=== PATIENT | male | born 1965 | race Caucasian/White ===

== ENCOUNTER 2016-08-15 10:34 | Outpatient (CLI) | payer BC ==
[~2016-08-15] VITALS: Ht 190.5 cm; Wt 159.1 kg
--- NOTE | ~2016-08-15 | HEMODYNAMI ---
PATIENT:CHARLEY LANE MEDICAL RECORD: [id number] : 69 LOCATION:[facility] ADMISSION DATE: 08/15/16 Generatedon:08/15/201614:04 Patient name: CHARLEY LANE Patient #: [id number] SSN: : 1965 Date of study: 08/15/2016 Page: Of Hemodynamic Procedure Report Patient Data Patient Demographics Procedure consent was obtained First Name: CHARLEY Gender: Male Last Name: DOMINGO : 1965 Middle Initial: KATELYN Age: 51 year(s) Patient #: [id number] Race: Unknown Additional ID: [id number] Contact details Address: [address] [address] State: [place] City: [place] Zip code: [address] Past Medical History Allergies: No known allergies Admission Admission Data Admission Date: 08/15/2016 Admission Time: 10:34 Height (in.): 76 BSA: 2.81 (m2) Height (cm.): 193.04 BMI: 42.6 (kg/m2) Weight (lbs.): 350 Weight (kg.): 158.76 Lab Results Lab Result Date: 08/15/2016 Lab Result Time: 0:00 Biochemistry Name Units Result Min Max BUN mg/dl 15 --(--*-)-- 7 18 CBC Name Units Result Min Max Hemoglobin g/dl 13.9 --(*---)-- 13.5 17.5 Procedure Procedure Types Cath Procedure Diagnostic Procedure LHC LHC w/Coronaries Miscellaneous Procedures Moderate Sedation up to 15 minutes Procedure Description Procedure Date Procedure Date: 08/15/2016 Procedure Start Time: 13:49 Procedure End Time: 14:03 Procedure Staff Name Function Vik Mejia MD Performing Physician Kathy Saravia RN Nurse Iglesia Goldsmith RT Monitor Woodrow Rivero RT Scrub Procedure Data Cath Procedure Fluoroscopy Diagnostic fluoroscopy Total fluoroscopy Time: 3.2 time: 3.2 min min Diagnostic fluoroscopy Total fluoroscopy dose: dose: 429.55 mGy 429.55 mGy Contrast Material Contrast Material Type Amount (ml) Isovue 300 92 Entry Location Entry Primary Successful Side Size Upsize Upsize Entry Closure Bradley ccessful Closure Location (Fr) 1 (Fr) 2 (Fr) Remarks Device Remarks Radial Right 6 Fr Mechanical artery Short Compression Estimated blood loss: 10 ml Diagnostic catheters Device Type Used For End Catheter Placement Terumo 5Fr Alvino 110cm Procedure catheter Procedure Medications Medication Administration Route Dosage Oxygen NC 2 l/min Heparin Flush Bag added to field 2 bags (1000units/500ml NS) Lidocaine 2% added to field 20 Radial Cocktail added to field 1 syringe (Verapomil 2mg/Nitro 400mcg/Heparin 1500units) Versed I.V. 1 mg Fentanyl I.V. 50 mcg Radial Cocktail I.A. 1 syringe (Verapomil 2mg/Nitro 400mcg/Heparin 1500units) Versed I.V. 1 mg Fentanyl I.V. 50 mcg Fentanyl I.V. 50 mcg Hemodynamics Rest BSA: 2.81 (m2) HGB: 13.9 (g/dl) O2 Consumption: Estimated: 335.18 (ml/min) O2 Co nsumption indexed: Estimated:119.28 (ml/min/m) Heart Rate: 69 (bpm) Pressure Samples Time Site Value (mmHg) Purpose Heart Use Rate(bpm) 13:53 LV 150/-3,16 Snapshot 69 Gradients Valve Time Site Site Mean SEP/DFP Peak To Heart Use 1 2 (mmHg) (sec/min) Peak Rate (mmHg) (bpm) Aortic 13:54 LV AO 68 Snapshots Pre Cath Intra NCS Post Cath Vital Signs Time Heart Resp SPO2 NIBP (mmHg) Rhythm Pain Sedation Rate (ipm) (%) Status Level (bpm) 13:40:06 67 20 99 181/108(154) NSR 0 (11) 10(A) , No pain 13:44:50 66 16 98 165/99(145) NSR 0 (11) 10(A) , No pain 13:49:35 65 16 97 173/100(131) NSR 0 (11) 10(A) , No pain 13:54:09 68 16 94 157/91(110) NSR 0 (11) 9(A) , No pain 13:58:50 70 15 96 160/92(112) NSR 0 (11) 9(A) , No pain 14:03:04 66 16 97 164/96(132) NSR 0 (11) 9(A) , No pain Medications Time Medication Route Dose Verified Delivered Reason Notes Effectiveness by by 13:39:19 Oxygen NC 2 l/min Vik Kathy Per Roberto Saravia RN physician 13:39:33 Heparin Flush added 2 bags Vik Vik used for Bag to Roberto Mejia MD procedure (1000units/500ml field NS) 13:39:40 Lidocaine 2% added 20ml Vik Vik used for to vial Roberto Mejia MD procedure field 13:39:47 Radial Cocktail added 1 Vik Vik used for (Verapomil to syringe Roberto Mejia MD procedure 2mg/Nitro field 400mcg/Heparin 1500units) 13:48:10 Versed I.V. 1 mg Vik Kathy for sedation Roberto Saravia RN 13:48:17 Fentanyl I.V. 50 mcg Vik Kathy for sedation Roberto Saravia RN 13:50:00 Fentanyl I.V. 50 mcg Vik Kathy for sedation Roberto Saravia RN 13:50:29 Radial Cocktail I.A. 1 Vik Vik for (Verapomil syringe Roberto Mejia MD vasodilation 2mg/Nitro 400mcg/Heparin 1500units) 13:50:51 Versed I.V. 1 mg Vik Kathy for sedation Roberto Saravia RN 13:52:09 Fentanyl I.V. 50 mcg Vik Kathy for sedation Roberto Saravia RN Procedure Log Time Note 13:15:46 Iglesia Goldsmith RT(R) (CV) sent for patient. Start room use. 13:15:48 Time tracking: Regular hours 13:15:51 Plan of Care:Hemodynamics will remain stable., Cardiac rhythm will remain stable., Comfort level will be maintained., Respiratory function will remain adequate., Patient/ family verbilizes understanding of procedure., Procedure tolerated without complication., Recovers from procedure without complications.. 13:28:32 Patient received from Pre/Post Procedure Room to [facility] 3 Alert and oriented. Tansferred to table in Supine position. 13:28:33 Warm blankets applied, and fauzia hugger turned on for patient comfort. 13:28:34 Correct patient and procedure confirmed by team. 13:28:35 Signed procedure consent form obtained from patient. 13:28:35 ECG and BP/O2 sat monitors applied to patient. 13:38:27 Vital chart was started 13:39:19 Oxygen 2 l/min NC was administered by Kathy Saravia RN; Per physician; 13:39:33 Heparin Flush Bag (1000units/500ml NS) 2 bags added to field was administered by Vik Mejia MD; used for procedure; 13:39:40 Lidocaine 2% 20ml vial added to field was administered by Vik Mejia MD; used for procedure; 13:39:47 Radial Cocktail (Verapomil 2mg/Nitro 400mcg/Heparin 1500units) 1 syringe added to field was administered by Vik Mejia MD; used for procedure; 13:44:32 Baseline sample Acquired. 13:44:42 Rhythm: sinus rhythm 13:44:45 Full Disclosure recording started 13:45:14 H&P Date Dictated: 07/22/2016 Within 30 days and on chart., H&P Addendum completed by physician on day of procedure. (MUST COMPLETE FOR ALL OUTPATIENTS). 13:45:15 Pre-procedure instructions explained to patient. 13:45:16 Pre-op teaching completed and patient verbalized understanding. 13:45:17 Family in waiting room. 13:45:20 Patient NPO since Midnight. 13:45:28 Patient allergic to No known allergies 13:45:48 Is the patient allergic to Iodine/contrast media? No. 13:45:51 Is patient on blood thinner?No 13:46:07 Patient diabetic? Yes. 13:46:08 If diabetic: On Metformin? Yes 13:46:31 If on Metformin: Last Dose? 08/12/2016 13:46:34 ----Pre-sedation anethsthesia assessment.---- 13:46:37 Previous problem with sedation/anesthesia? No ? 13:46:38 Snore? Yes 13:46:40 Sleep apnea? Yes 13:46:41 Deviated septum? No 13:46:42 Opens mouth fully? Yes 13:46:43 Sticks out tongue? Yes 13:46:46 Airway obstruction? No ? 13:46:49 Dentures? No ? 13:47:02 Modified Stanley's test Ulnar < 7 seconds 13:47:05 Patient pain scale 0/10 ?. 13:47:13 IV patent on arrival in left forearm with 0.9% NaCl at [facility]. 13:47:43 Lab Result : BUN 15 mg/dl 13:47:43 Lab Result : Hemoglobin 13.9 g/dl 13:47:48 Lab results completed and on chart. 13:47:53 Right Radial & Right Groin area was prepped with chlora-prep and draped in sterile fashion 13:47:55 Alarms reviewed by R. N. 13:47:55 Sharps counted by scrub and verified by R.N. 13:47:57 Physician arrived 13:47:57 --------ALL STOP TIME OUT------ 13:47:58 Final Timeout: patient, procedure, and site verified with staff and physician. All members of the team are in agreement. 13:48:00 Right Radial & Right Groin site verified by team. 13:48:04 Physical assessment completed. ASA score P 2 - A patient with mild systemic disease as per Vik Mejia MD. 13:48:08 Sedation plan: IV Moderate Sedation Versed, Fentanyl 13:48:10 Versed 1 mg I.V. was administered by Kathy Saravia RN; for sedation; 13:48:17 Fentanyl 50 mcg I.V. was administered by Kathy Saravia RN; for sedation; 13:48:25 Patient Height : 193.04 cm 13:48:35 Patient Weight : 158.76 kg 13:48:54 Use device set Radial Dx 13:48:55 Acist Syringe opened to sterile field. 13:48:56 Medline Cath Pack opened to sterile field. 13:48:57 Bag Decanter opened to sterile field. 13:48:57 Terumo 6Fr Slender Glidesheath opened to sterile field. 13:48:58 St Joce 260cm J .035 wire opened to sterile field. 13:48:58 Acist Hand Control opened to sterile field. 13:48:59 Acist Manifold opened to sterile field. 13:48:59 Tegaderm 4 x 4 opened to sterile field. 13:49:00 MBrace Wrist Support opened to sterile field. 13:49:06 Procedure started. 13:49:14 Local anesthetic to right radial artery with Lidocaine 2% by Vik Mejia MD.INITIAL ACCESS ONLY 13:50:00 Fentanyl 50 mcg I.V. was administered by Kathy Saravia RN; for sedation; 13:50:06 A 6 Fr Short sheath was inserted into the Right Radial artery 13:50:29 Radial Cocktail (Verapomil 2mg/Nitro 400mcg/Heparin 1500units) 1 syringe I.A. was administered by Vik Mejia MD; for vasodilation; 13:50:30 A Terumo 5Fr Alvino 110cm catheter was advanced over the wire and used for Procedure. 13:50:43 Baseline sample Acquired. 13:50:51 Versed 1 mg I.V. was administered by Kathy Saravia RN; for sedation; 13:51:38 Zero performed for pressure channel P1 13:52:09 Fentanyl 50 mcg I.V. was administered by Kathy Saravia RN; for sedation; 13:53:56 LV hemodynamics recorded. 13:53:58 LV gram done using DARBY 13:54:01 LV Function : Normal 13:54:09 EF : 55 % 13:55:23 LCA angiography performed. 13:57:35 RCA angiography performed. 13:58:47 Catheter removed. 13:59:01 Terumo TR Band Large opened to sterile field. 13:59:42 Sheath removed intact; hemostasis achieved with Mechanical Compression to the Right Radial artery. 13:59:46 Procedure ended.(Physican Out) 14:00:33 Fluoroscopy time 03.20 minutes. 14:00:41 Fluoroscopy dose: 429.55 mGy 14:00:41 Flurop Dose total: 429.55 14:00:46 Contrast amount:Isovue 300 92ml. 14:00:47 Sharps counted by scrub and verified by R.N. 14:01:46 TR band inflated with 10cc of air. 14:01:48 Insertion/operative site no bleeding no hematoma. 14:01:54 Post right radial artery:stable 14:02:01 Post-procedure physical assessment completed. ASA score P 2 - A patient with mild systemic disease as per Vik Mejia MD. 14:02:04 Post procedure rhythm: sinus rhythm 14:02:07 Estimated blood loss: 10 ml 14:02:09 Post procedure instruction explained to patient.Patient verbalizes understanding. 14:02:09 Patient needs reinforcement of post procedure teaching. 14:02:34 Procedure and supply charges have been captured, reviewed, submitted and are correct. 14:03:48 Vital chart was stopped 14:03:49 See physician's report for complete and final results. 14:03:51 Report given to Pre/Post Procedure Room. 14:03:55 Patient transfered to Pre/Post Procedure Room with Stretcher. 14:03:57 Procedure ended. 14:03:57 Full Disclosure recording stopped 14:04:06 End room use (Document Last) Device Usage Item Name Manufacture Quantity Catalog Hospital Part Current Minimal Lot# / Number Charge Number Stock Stock Serial# Code Acist Acist 1 91542 693951 715762 901782 20 Syringe Medical Systems Inc Medline Cardinal 1 [id number] 098602 14832 504608 5 Cath Pack Health Bag Microtek 1 2001S 972384 24943 844759 5 Decanter Medical Inc. Terumo 6Fr Terumo 1 [id number] 501316 299046 749086 [address] Jo[address] St Joce 1 043556 205292 143825 246308 30 260cm J .035 wire Acist Hand Acist 1 56857 636611 558633 467164 5 Control Medical Systems Inc Acist Acist 1 81240 719892 069203 321968 5 Manifold Medical Systems Inc Tegaderm 4 3M 1 1626W 203594 721356 744317 5 x 4 MBrace Advanced 1 140-0250-00 766246 21428 169034 5 Wrist Vascular Support Dynamics Terumo 5Fr Terumo 1 76-4666 865576 747636 584480 5 Alvino 110cm catheter Terumo TR Terumo 1 [id number] 831112 638066 247491 40 Band Large Signature Audit [place] Stage Time Signature Unsigned Intra-Procedure 08/15/2016 Iglesia Goldsmith 2:04:33 PM RT(R) (CV) Signatures Monitor : Iglesia Goldsmith RT Signature : Date : Time : [id number] [place] [address]
[~2016-08-15 10:34] MED LIST: GLUCOPHAGE500 MG PO; GLUCOTROL 5 MG T5 MG PO; LISINOPRIL10 MG PO; NORVASC5 MG PO; PERCOCET 10/3251 TA1 PO; PERCOCET 5-3251 TAB PO; RESTORIL15 MG PO
[2016-08-15] MEDS ORDERED: ZIAC 10-6.25 MG1 TAB PO (10:59)
[2016-08-15 11:05] VITALS: BP 188/104; Ht 190.5 cm; Wt 159.1 kg
[2016-08-15 11:41] LABS: BASOPHILS 0.5 % (0-2); EOSINOPHILS 1.2 % (0-7); HEMATOCRIT 42.5 % (42.0-54.0); HEMOGLOBIN 13.9 g/dL (13.5-17.5); IMMATURE GRANULOCYTES 0.8 % (0-5); LYMPHOCYTES 20.1 % (15-50); MCH 29.3 pg (26.0-34.0); MCHC 32.7 g/dL (31.0-37.0); MCV 89.5 fL (80.0-100.0); MEAN PLATELET VOLUME 10.6 fL (7.4-10.4); MONOCYTES 11.2 % (2-11); NEUTROPHILS 66.2 % (40-80); PLATELET COUNT 229 10x3/uL (130-400); RBC 4.75 10x6/uL (4.20-6.10); RDW 13.5 % (11.5-14.5); WBC 8.6 10x3/uL (4.8-10.8)
[2016-08-15 11:43] LABS: CALC OSMOLALITY 283 mosm/kg (275-300); CALCIUM 8.9 mg/dL (8.5-10.1); CARBON DIOXIDE 29.1 mmol/L (21.0-32.0); CHLORIDE - SERUM 102 mmol/L (98-107); POTASSIUM - SERUM 3.9 mmol/L (3.5-5.1); SODIUM 141 mmol/L (136-145); UREA NITROGEN 15 mg/dL (7-18); eGFR NON AFRICAN AMERICAN 84 mL/min (90-120)
[2016-08-15 11:46] LABS: GLUCOSE 136 mg/dL (74-106)
--- NOTE | 2016-08-15 15:22 | NUR ---
1430 SITTING UP, VITALS ALL WNL. R WRIST TR BAND C/D/I WITH NO HEMATOMA OR BLEEDING. FAMILY AT BEDSIDE. DENIES NEEDS AT THIS TIME. 1500 SIPPING SODA WITH NO NAUSEA. ALL VITALS WNL. R WRIST TR BAND C/D/I WITH NO HEMATOMA OR BLEEDING.
--- NOTE | 2016-08-15 16:22 | NUR ---
2CC OF AIR REMOVED FROM TR BAND. NO BLEEDING NOTED. NO C/O AT THIS TIME. VSS.
--- NOTE | 2016-08-15 16:34 | NUR ---
3CC OF AIR [id number] FROM TR BAND. NO BLEEDING NOTED.
--- NOTE | 2016-08-15 16:46 | NUR ---
3CC OF AIR REMOVED FROM TR BAND. NO BLEEDING NOTED. RIGHT AC PIV D/C'D WITH CATHETER INTACT, BAND AID TO SITE. UP TO BEDSIDE TO GET DRESSED.
--- NOTE | 2016-08-15 16:52 | NUR ---
REMAINING AIR REMOVED FROM TR BAND, DRESSING PLACED TO SITE. DISCHARGE INSTRUCTIONS GIVEN, VERBALIZED UNDERSTANDING.
--- NOTE | 2016-08-15 17:00 | NUR ---
TAKEN OUT VIA WHEELCHAIR BY CATH OFFICE MESSENGER HELPER. LEFT FACILITY WITH AND ALL PERSONAL BELONGINGS.
--- NOTE | 2016-08-17 12:49 | OP ---
PATIENT NAME: CHARLEY LANE MEDICAL RECORD: [id number] :69 LOCATION:D[facility] ADMISSION DATE: SURGEON: SARA JARA M.D. DATE OF OPERATION: 08/15/2016 PROCEDURES PERFORMED: 1. Selective coronary angiography. 2. Left heart catheterization with ventriculogram. INDICATION: A 51-year-old gentleman who presents with symptoms of accelerating angina. Recent stress test revealed lateral wall ischemia. REFERRING PHYSICIAN: Sheree Ashraf MD. EQUIPMENT USED: A 5-Senegalese Alvino catheter. TECHNIQUE: A 6-Senegalese sheath was inserted in retrograde fashion in the right radial artery. Next, selective coronary angiography was performed in standard views using 5-Senegalese Alvino catheter. Left heart catheterization was performed using a Alvino catheter as well. CORONARY ANATOMY: 1. Left main: Left main trunk is large in caliber. It gives rise to the LAD and circumflex. It is a smooth-walled vessel and angiographically normal. 2. LAD: This is a large-caliber vessel extending to the apex. It gives rise to a moderate caliber diagonal proximal segment. The LAD and diagonal are angiographically normal. 3. Circumflex: This vessel is moderate in caliber. It supplies the lateral branch and proximal segment. The circumflex and lateral branch are angiographically normal. 4. Right coronary artery: This vessel is quite large and dominant. It supplies the PDA and posterolateral branches in the distal segment. This vessel is angiographically normal. 5. Left ventricle: Left ventricle is normal in size and function. No wall motion is noted. Estimated ejection fraction is 60%. IMPRESSION: 1. Normal coronary arteries. 2. Normal left ventricular function. RECOMMENDATIONS: I suspect the stress test was a false positive. We will continue with medical management. TRANSINT:[id number] Voice Confirmation ID: [id number] DOCUMENT ID: [id number] SARA JARA M.D. at 1249 CC: [id number] DICTATION DATE: 08/15/16 1407 VISION SPECIALIST: 08/15/161950 [facility] CLI 08/15/16 [address] [place] [address]
== END 2016-08-15 17:00 | disposition home or self-care (01) ==
LOC: D.CATH 10:34
PROVIDERS: Internal Medicine Cardiovascular Disease
DX: I20.9 Angina pectoris, unspecified (principal); I10 Essential (primary) hypertension; I45.10 Unspecified right bundle-branch block; Z82.49 Family history of ischemic heart disease and other diseases of the circulatory system

== ENCOUNTER 2016-11-03 08:02 | Inpatient (IN) | payer BC ==
[~2016-11-03] VITALS: Ht 190.5 cm; Wt 158.8 kg
[~2016-11-03 08:02] MED LIST changes: +ZIAC 10-6.25 MG1 TAB PO
[2016-11-03 08:48] LABS: BASOPHILS 0.2 % (0-2); EOSINOPHILS 1.1 % (0-7); HEMOGLOBIN 15.3 g/dL (13.5-17.5); IMMATURE GRANULOCYTES 0.9 % (0-5); MCH 30.6 pg (26.0-34.0); MEAN PLATELET VOLUME 10.3 fL (7.4-10.4); MONOCYTES 6.6 % (2-11); NEUTROPHILS 77.2 % (40-80); PLATELET COUNT 212 10x3/uL (130-400); RDW 14.2 % (11.5-14.5); WBC 13.2 10x3/uL (4.8-10.8)
[2016-11-03 09:44] LABS: ALBUMIN 3.6 g/dL (3.4-5.0); ALKALINE PHOSPHATASE 67 U/L (46-116); ALT (SGPT) 27 U/L (10-68); AMYLASE - SERUM 26 U/L (25-115); BILIRUBIN - TOTAL 0.85 mg/dL (0.2-1.3); CALC OSMOLALITY 289 mosm/kg (275-300); CALCIUM 9.3 mg/dL (8.5-10.1); CARBON DIOXIDE 23.6 mmol/L (21.0-32.0); CHLORIDE - SERUM 104 mmol/L (98-107); CREATININE - SERUM 1.1 mg/dL (0.6-1.3); LIPASE 127 U/L (73-393); POTASSIUM - SERUM 4.3 mmol/L (3.5-5.1); SODIUM 141 mmol/L (136-145); UREA NITROGEN 22 mg/dL (7-18); eGFR NON AFRICAN AMERICAN 75 mL/min (90-120)
[2016-11-03 09:47] LABS: GLUCOSE 206 mg/dL (74-106)
[2016-11-03 09:59] LABS: APPEARANCE CLEAR (CLEAR); BILIRUBIN NEGATIVE (NEGATIVE); COLOR YELLOW (YELLOW); GLUCOSE 100 mg/dL (NEGATIVE); KETONE NEGATIVE (NEGATIVE); LEUKOCYTE ESTERASE NEGATIVE (NEGATIVE); NITRITE NEGATIVE (NEGATIVE); PROTEIN NEGATIVE (NEGATIVE); UROBILINOGEN NORMAL (NORMAL)
--- NOTE | 2016-11-03 12:30 | NUR ---
RECIEVED PT VIA WHEELCHAIR FROM ER. REPORT RECIEVED BY CHRISTIAN ROSE. PT ORINETED TO ROOM AND UNIT. ASSESSMENT DONE PER FLOWSHEET, HISTORY OBTAINED. BED IN LOW POSITION AND CALL LIGHT WITHIN REACH. WILL CONTINUE TO MONITOR.
[2016-11-03] MEDS ORDERED: LISINOPRIL10 MG PO (13:04)
[2016-11-03 15:01] VITALS: BP 129/76; BMI 43.8
[2016-11-03 16:33] VITALS: BP 108/83
[2016-11-03 20:00] VITALS: BP 136/81
[2016-11-04] VITALS: BP 147/86
--- NOTE | 2016-11-04 00:40 | NUR ---
PATIENT SLEEPING CONFORTABLY WITH HOME CPAP ON. BED IN LOWEST LOCKED POSITION, BED RAIL UP x1, CALL LIGHT WITHIN REACH
[2016-11-04 03:49] VITALS: BP 123/74
--- NOTE | 2016-11-04 04:02 | NUR ---
PT REMAINS NPO FOR SURGERY IN THE AM. HE IS AWAKE AND STATED HE WAS READY TO TAKE HIS HIBICLENS SHOWER WHENEVER WE WERE READY. HE IS WEARING CPAP AT THIS TIME. AND THERE IS NO RESP DISTRESS NOTEED.
[2016-11-04 05:47] LABS: BASOPHILS 0.3 % (0-2); EOSINOPHILS 3.5 % (0-7); HEMATOCRIT 39.7 % (42.0-54.0); HEMOGLOBIN 13.1 g/dL (13.5-17.5); LYMPHOCYTES 31.3 % (15-50); MCH 30.1 pg (26.0-34.0); MCV 91.3 fL (80.0-100.0); MEAN PLATELET VOLUME 10.7 fL (7.4-10.4); NEUTROPHILS 53.9 % (40-80); PLATELET COUNT 197 10x3/uL (130-400); RBC 4.35 10x6/uL (4.20-6.10); RDW 14.3 % (11.5-14.5)
[2016-11-04 05:48] LABS: WBC 7.2 10x3/uL (4.8-10.8)
[2016-11-04 05:52] LABS: ALBUMIN 2.8 g/dL (3.4-5.0); ALKALINE PHOSPHATASE 51 U/L (46-116); BILIRUBIN - TOTAL 0.73 mg/dL (0.2-1.3); CALCIUM 8.5 mg/dL (8.5-10.1); CHLORIDE - SERUM 106 mmol/L (98-107); PHOSPHOROUS 3.1 mg/dL (2.5-4.9); PROTEIN - SERUM 6.4 g/dL (6.4-8.2); SODIUM 142 mmol/L (136-145); eGFR NON AFRICAN AMERICAN 84 mL/min (90-120)
[2016-11-04 05:53] LABS: ALT (SGPT) 20 U/L (10-68); CALC OSMOLALITY 285 mosm/kg (275-300); CARBON DIOXIDE 30.6 mmol/L (21.0-32.0); GLUCOSE 136 mg/dL (74-106); UREA NITROGEN 15 mg/dL (7-18)
--- NOTE | 2016-11-04 07:30 | NUR ---
RECIEVED PT DURING WALKING ROUNDS. PT RESTING IN BED WITH NO COMPLAINTS OF PAIN OR DISCOMFORT AT THIS TIME, STRETCH MACHINE OPERATOR IN USE. ASSESSMENT DONE PER FLOWSHEET. BED IN LOW POSITION AND CALL LIGHT WITHIN REACH. WILL CONTINUE TO MONITOR.
[2016-11-04 09:31] VITALS: BP 130/91
[2016-11-04 12:14] VITALS: BP 128/89
[2016-11-04 13:08] VITALS: Ht 190.5 cm; Wt 158.8 kg
[2016-11-04 15:58] VITALS: BP 145/87
[2016-11-04 20:00] VITALS: BP 161/82
--- NOTE | 2016-11-05 00:18 | NUR ---
PATIENT TAKEN BACK TO SURGERY AROUND 2300. FAMILY IS IN ROOM.
--- NOTE | 2016-11-05 00:28 | NUR ---
PROCEDURE CONVERTED TO OPEN AT 0025
[2016-11-05 03:19] VITALS: BP 145/70
[2016-11-05 03:33] VITALS: BP 126/55
--- NOTE | 2016-11-05 04:44 | NUR ---
PT IS AWAKE IN BED WITH A SATELLITE DISH INSTALLER FOR PAIN CONTROL BUT HE STATED HE WAS STILL HURTING ALOT. ASSIGNED NURSE WAS ASKED IF THERE WAS ANYTHING FOR BREAK THROUGH PAIN. THE DRESSING TO HIS ABD IS CLEAN DRY AND INTACT. HE IS STILL GETTING HIS VITAL SIGNS TAKEN PER PROTOCOL. NO FAMILY IN THE ROOM. NO DISTRESS NOTED. GOOD COLOR AND EASY RESPIRATIONS AT THIS TIME.
--- NOTE | 2016-11-05 07:15 | NUR ---
REPORT RECEIVED FROM PACKAGING MACHINE SUPPLIES DISTRIBUTOR NURSE. CALL LIGHT IN REACH.
--- NOTE | 2016-11-05 07:54 | NUR ---
ASSESSMENT COMPLETED. INCENTIVE SPIROMETER GIVEN TO PATIENT AND EXPLAINED USE WITH RETURN DEMONSTRATION. SCDs APPLIED TO BLE. REQUESTING A CUP OF WATER BUT EXPLAINED TO PATIENT THAT HE IS NPO EXCEPT FOR ICE CHIPS. VERBALIZED UNDERSTANDING. ICE TAKEN TO PATIENT. ALSO EXPLAINED TO SPLINT HIS STOMACH WITH A PILLOW WHEN HE HAS TO COUGH. ALSO VERBALIZED UNDERSTANDING FOR THAT. CARE PLAN REVIEWED. CALL LIGHT IN REACH. WILL CONTINUE WITH PLAN OF CARE.
[2016-11-05 08:32] LABS: BASOPHILS 0.2 % (0-2); EOSINOPHILS 0 % (0-7); HEMATOCRIT 42.1 % (42.0-54.0); HEMOGLOBIN 13.6 g/dL (13.5-17.5); IMMATURE GRANULOCYTES 0.4 % (0-5); LYMPHOCYTES 8.8 % (15-50); MCH 29.9 pg (26.0-34.0); MCHC 32.3 g/dL (31.0-37.0); MCV 92.5 fL (80.0-100.0); MEAN PLATELET VOLUME 10.5 fL (7.4-10.4); NEUTROPHILS 83.6 % (40-80); RBC 4.55 10x6/uL (4.20-6.10)
[2016-11-05 08:34] LABS: PLATELET COUNT 241 10x3/uL (130-400); WBC 11.1 10x3/uL (4.8-10.8)
[2016-11-05 08:44] LABS: ALBUMIN 3.1 g/dL (3.4-5.0); ANION GAP 13.3 mmol/L (8-16); BILIRUBIN - TOTAL 0.72 mg/dL (0.2-1.3); CALCIUM 8.2 mg/dL (8.5-10.1); CARBON DIOXIDE 26.3 mmol/L (21.0-32.0); CREATININE - SERUM 1.5 mg/dL (0.6-1.3); MAGNESIUM - SERUM 1.9 mg/dL (1.8-2.4); PHOSPHOROUS 3.7 mg/dL (2.5-4.9); POTASSIUM - SERUM 4.6 mmol/L (3.5-5.1); PROTEIN - SERUM 6.8 g/dL (6.4-8.2)
--- NOTE | 2016-11-05 09:05 | NUR ---
LYING IN BED WATCHING TV AT THIS TIME. NO NEEDS VOICED. CALL LIGHT IN REACH.
--- NOTE | 2016-11-05 10:30 | NUR ---
PATIENT IN BED WITH IV INTACT. NO COMPLAINTS OR SIGNS OF DISTRESS. CALL LIGHT WITHIN REACH.
--- NOTE | 2016-11-05 11:38 | NUR ---
AM MEDS ADMINISTERED PER ORDER. CALL LIGHT IN REACH.
--- NOTE | 2016-11-05 12:50 | NUR ---
DENIES NEEDS AT THIS TIME. CALL LIGHT IN REACH
--- NOTE | 2016-11-05 14:30 | NUR ---
DR. ZEE IN ROOM TO SEE PATIENT.
--- NOTE | 2016-11-05 15:03 | NUR ---
RANGE AID SETTINGS CHANGED PER DR. ZEE.
--- NOTE | 2016-11-05 16:30 | NUR ---
LOVENOX SUBQ TO RLQ. NEW VIAL OF BACK CLOSER. PATIENT REFUSES TO HAVE LINENS CHANGED AT THIS TIME.
--- NOTE | 2016-11-05 18:08 | NUR ---
NO CHANGES IN INITIAL ASSESSMENT. CALL LIGHT IN REACH. SCDs TO BLE. CALL LIGHT IN REACH. WILL CONTINUE WITH PLAN OF CARE.
[2016-11-05 20:00] VITALS: BP 123/64
--- NOTE | 2016-11-06 00:40 | NUR ---
RESTING QUIETLY WITH CPAP MASK ON. RR EVEN U/L. NO S/S OF DISTRESS OR DISCOMFORT. SCD'S ON. CALL LIGHT IN REACH.
[2016-11-06 04:00] VITALS: BP 157/82
[2016-11-06 05:22] LABS: BASOPHILS 0.1 % (0-2); EOSINOPHILS 0.7 % (0-7); HEMATOCRIT 39.5 % (42.0-54.0); HEMOGLOBIN 12.8 g/dL (13.5-17.5); IMMATURE GRANULOCYTES 0.6 % (0-5); LYMPHOCYTES 15.2 % (15-50); MCH 29.9 pg (26.0-34.0); MCHC 32.4 g/dL (31.0-37.0); MCV 92.3 fL (80.0-100.0); MEAN PLATELET VOLUME 10.8 fL (7.4-10.4); MONOCYTES 11.6 % (2-11); NEUTROPHILS 71.8 % (40-80); PLATELET COUNT 236 10x3/uL (130-400); RBC 4.28 10x6/uL (4.20-6.10); RDW 14.3 % (11.5-14.5); WBC 8.7 10x3/uL (4.8-10.8)
[2016-11-06 05:41] LABS: ALBUMIN 2.6 g/dL (3.4-5.0); ALKALINE PHOSPHATASE 45 U/L (46-116); ALT (SGPT) 19 U/L (10-68); CALC OSMOLALITY 279 mosm/kg (275-300); CALCIUM 8.2 mg/dL (8.5-10.1); CARBON DIOXIDE 26.2 mmol/L (21.0-32.0); CHLORIDE - SERUM 105 mmol/L (98-107); CREATININE - SERUM 0.9 mg/dL (0.6-1.3); GLUCOSE 127 mg/dL (74-106); POTASSIUM - SERUM 4.1 mmol/L (3.5-5.1); SODIUM 139 mmol/L (136-145); UREA NITROGEN 13 mg/dL (7-18); eGFR NON AFRICAN AMERICAN > 90 mL/min (90-120)
--- NOTE | 2016-11-06 07:15 | NUR ---
REPORT RECEIVED FROM PROGRAMMER DEVELOPER NURSE. CALL LIGHT IN REACH.
--- NOTE | 2016-11-06 08:10 | NUR ---
ASSESSMENT COMPLETE. IV TO L AC PATENT. NS INFUSING AT 125 CC/HR VIA PUMP. SCHOOL DIRECTOR DILAUDID 0.4-10-0 IN USE FOR PAIN CONTROL. DRESSING INTACT TO ABDOMINAL INCISION. SCDS IN USE TO BILAT LEGS. INSTRUCTED TO SPLINT ABDOMEN WITH PILLOW HHILE COUGHING.
[2016-11-06 08:24] VITALS: BP 186/89
--- NOTE | 2016-11-06 09:42 | NUR ---
AM MEDS ADMINISTERED. PARENTS IN ROOM. CALL LIGHT IN REACH.
--- NOTE | 2016-11-06 11:58 | NUR ---
NO NEEDS VOICED AT THIS TIME. CALL LIGHT IN REACH.
[2016-11-06 12:57] VITALS: BP 147/83
--- NOTE | 2016-11-06 13:03 | NUR ---
DRESSING REMOVED BY DR CHAPMAN DURING ROUNDS. INCISION CLEANED WITH SALINE. ZAIDA INTACT TO INCISION. AIRSTRIP DRESSING APPLIED.
--- NOTE | 2016-11-06 14:40 | NUR ---
LOVENOX SUBQ TO LLQ. HELD TYLENOL D/T PATIENT HAVING TOO MUCH TYLENOL FOR THE PAST 24 HOURS.
[2016-11-06 15:58] VITALS: BP 163/92
--- NOTE | 2016-11-06 16:19 | NUR ---
NEW VIAL OF DILAUDID INITIATED. FAMILY IN ROOM. CALL LIGHT IN REACH.
--- NOTE | 2016-11-06 18:09 | NUR ---
NO CHANGES IN INITIAL ASSESSMENT. SCDs TO BLE. FAMILY IN ROOM. CALL LIGHT IN REACH. WILL CONTINUE WITH PLAN OF CARE.
[2016-11-06 20:00] VITALS: BP 167/82
--- NOTE | 2016-11-06 20:00 | NUR ---
ASSESSMENT PER FLOWSHEET. MIDLINE ABDOMINAL INCISION C/D/I WITH 3 LAP SITES C/D/I. WEBSTER TO BEDSIDE DRAINAGE WITH BLUE COLORED URINE. IV PATENT LEFT AC OF NS AT 125CC'S/HR SITE CLEAR. HOSPITALIST OF DILAUDID IN USE WITH SETTINGS AT 0.4MG Q10MIN WITH NO L/O.PT STATES HAS BEEN EXPELLING GAS. SCD'S ON.
--- NOTE | 2016-11-06 21:30 | NUR ---
MEDS GIVEN DE MAR.
[2016-11-07] VITALS: BP 149/89
--- NOTE | 2016-11-07 01:47 | NUR ---
RESTING QUIETLY DENIES NEEDS.
[2016-11-07 04:00] VITALS: BP 159/91
--- NOTE | 2016-11-07 08:00 | NUR ---
ASSESSMENT PER FLOW SHEET.PT WITHOUT DISTRESS.BS +,ABDOMEN FIRM.PT REPORTS PASSING GAS.HE REPORTS PAIN 1/10 SCALE TO ABDOMEN,BUT STTAES IT IS MORE OF PRESSURE.WITHOUT NAUSA.INCISION DRESSING MIDLINE IS INTACT.LAP SITES X3 IN PLACE AND CLEAN AND DRY.DENIES NEEDS.CALL LIGHT IN REACH.
[2016-11-07 08:09] VITALS: BP 150/83
[2016-11-07 12:10] VITALS: BP 104/64
--- NOTE | 2016-11-07 13:05 | NUR ---
NUTRITION MONITORING & EVAL CLEAR LIQUID DIET, S/P SURGERY. WILL MONITOR DIET ADVANCEMENT, PO INTAKE. RD FOLLOWING
[2016-11-07 15:51] VITALS: BP 163/71
--- NOTE | 2016-11-07 17:23 | NUR ---
REMAINS WITHOUT NEEDS,WITHOUT DISTRESS.PAIN CONTROLLED WITH OIL AND GAS SPECIALIST. REMAINS WITHOUT CHANGE FROM INITIAL SHIFT ASSESSMENT.CONT PLAN OF CARE
[2016-11-07 20:00] VITALS: BP 143/81
--- NOTE | 2016-11-07 20:00 | NUR ---
ASSESSMENT PER FLOWSHEET. IV PATENT LEFT ARM CARDIOVASCULAR SURGEON DILAUDID IN USE FOR PAIN CONTROL MIDLINE INCISION DRESG C/D/I. LAP SITES X3 C/D/I. WEBSTER TO BS DRAINAGE.
--- NOTE | 2016-11-07 22:00 | NUR ---
MEDS PER MAR.
--- NOTE | 2016-11-08 | NUR ---
PT WEARING HIS CPAP EYES CLOSED RESPIRATIONS WITH EASE AND UNLABORED.
--- NOTE | 2016-11-08 03:00 | NUR ---
RESTING QUIETLY DENIES NEEDS.
[2016-11-08 04:00] VITALS: BP 153/89
--- NOTE | 2016-11-08 06:46 | NUR ---
NO CHANGES IN ASSESSMENT
--- NOTE | 2016-11-08 07:45 | NUR ---
ASSESSMENT PER FLOW SHEET.PT WITHOUT DISTRESS.DRESSING MIDLINE CHANGED,INCISION APROXIMATED WITH ZAIDA AND IS WITHOUT DRAINAGE.BANDAIDS X 3 REMOVED,LAP SITES HAVE STERI STRIPS IN PLACE AND ARE WITHOUT DRAINAGE.CALL LIGHT IN REACH
[2016-11-08 08:09] VITALS: BP 159/91
--- NOTE | 2016-11-08 10:27 | NUR ---
Patient Name: CHARLEY LANE Admission Status: ER Accout number: [id number] Admission Date: 11-03-2016 : 1965 Admission Diagnosis:INCISIONAL HERNIA WITH OBSTRUCTION, WITHOUT GANGRENE Attending: LISETTE Current LOS: 5 Anticipated DC Date: 11-11-2016 Planned Disposition: Home Primary Insurance: [place] [facility] Discharge Planning Comments: CM MET WITH PATIENT REGARDING D/C NEEDS AND PLANS. PATIENT STATED HIS GIRLFRIEND WILL DRIVE HIM TO HER HOME AT DISCHARGE. PATIENT STATED 2 STEPS W/RAILS TO ENTER HOME AND NO STAIRS INSIDE. PATIENT IS INDEPENDENT WITH HIS CARE AND HAS A SHOWER CHAIR, WALKER, CANE, C-PAP, AND GLUCOMETER AT HOME. PATIENTS PCP IS DR. WOLF AND PHARMACY IS [facility]. PATIENT REFUSED HOME HEALTH. CM WILL CONTINUE TO FOLLOW PATIENT WITH D/C NEEDS AND PLANS. PCP DR. LUCIANO SANDRA [facility] [phone] VALORIE YIN [phone] Nutritional Yeast Supervisor: Gill Wood Is the patient Alert and Oriented? Yes 0 * How many steps to enter\exit or inside your home? 2 W/RAILS 0 * PCP DR. WOLF 0 * Pharmacy [facility] 0 * Preadmission Environment Home with Family 0 * ADLs Independent 0 * Equipment Cane CPAP Glucometer Shower Chair Walker 0 * List name and contact numbers for known caregivers / representatives who currently or will assist patient after discharge: VALORIE YIN [phone] * Community resources currently utilized None 0 * Additional services required to return to the preadmission environment? Yes 0 * Can the patient safely return to the preadmission environment? Yes 0 * Has this patient been hospitalized within the prior 30 days at any hospital? No 0 Grand Total: 0
[2016-11-08 11:59] VITALS: BP 154/88
[2016-11-08 15:19] VITALS: BP 156/89
--- NOTE | 2016-11-08 15:30 | NUR ---
ELEANOR DC'D BY DR. ZEE WHO IS HERE TO SEE PT. 600 CC OF CLEAR URINE IN WEBSTER BAG,CATH TIP INTACT.PT TOLERATED WELL.URINAL PROVIDED.
--- NOTE | 2016-11-08 18:00 | NUR ---
VOIDED 600CC IN URINAL.TOLERATING REG DIET.WITHOUT NEEDS.CONT PLAN OF CARE
[2016-11-08 20:00] VITALS: BP 175/76
--- NOTE | 2016-11-08 20:00 | NUR ---
ASSESSMENT PER FLOWSHEET. VISITING WITH HIS . DENIES NEEDS. IV PATENT LEFT ARM NS AT 125CC'S/HR. MOTEL FRONT DESK CLERK OF DILAUDID IN USE WITH SETTINGS AT 0.4MG Q10MIN W/NO L/O. GOOD PAIN CONTROL.
--- NOTE | 2016-11-08 22:00 | NUR ---
MEDS GIVEN PER MAR.
[2016-11-09] VITALS: BP 142/60
--- NOTE | 2016-11-09 01:00 | NUR ---
EYES CLOSED RESPIRATIONS WITH EASE AND UNLABORED.
[2016-11-09 04:00] VITALS: BP 149/81
--- NOTE | 2016-11-09 05:00 | NUR ---
SLEEPING WITH HIS CPAP ON. SR UP X2 CALL LIGHT WITHIN REACH.
--- NOTE | 2016-11-09 07:20 | NUR ---
ASSESSMENT PER FLOW SHEET.PT WITHOUT DISTRESS.DRESSING TO MIDLINE ABDOMEN CLEAN,DRY AND INTACT.PT HAS VOIDED 700CC IN URINE AND HAD BM THIS AM.HE STILL DENIES PAIN.PT HAS BEEN UP AND IS NOW IN CHAIR.CALL LIGHT IN REACH
[2016-11-09 08:21] VITALS: BP 178/107
[2016-11-09 12:37] VITALS: BP 161/96
--- NOTE | 2016-11-09 15:26 | NUR ---
DRESSING CHANGE TO ABDOMEN USING ASEPTIC TECH.PT TOLERATED WELL.
[2016-11-09] MEDS ORDERED: HYDROCODONE-APA1 TAB PO (15:49)
[2016-11-09 15:54] VITALS: BP 145/85
--- NOTE | 2016-11-09 17:24 | NUR ---
DISCHARGE NSTRUCTIONS,STATES UNDERSTANDING.IV DCD WITH CATH INTACT.LEFT UNIT VIA WHEELCHAIR.
--- NOTE | 2016-11-10 11:10 | NUR ---
LATE ENTRY: PATIENT D/C YESTERDAY. PATIENT HAD NO NEEDS FOR DISCHARGE. FAMILY DROVE HIM HOME.
== END 2016-11-09 17:26 | disposition home or self-care (01) | DRG 337 ==
LOC: D.ER 08:02 → OBSVTIME 11:58 → D.MS 11:58
PROVIDERS: Emergency Medicine; ADMIT Surgery
PROC: 0DNW4ZZ Release Peritoneum, Percutaneous Endoscopic Approach (ICD-10-PCS; principal; 2016-11-05)
PROC: 0WUF0JZ Supplement Abdominal Wall with Synthetic Substitute, Open Approach (ICD-10-PCS; principal; 2016-11-05)
PROC: 0WBF0ZZ Excision of Abdominal Wall, Open Approach (ICD-10-PCS; principal; 2016-11-05)
DX: K43.0 Incisional hernia with obstruction, without gangrene (principal); I10 Essential (primary) hypertension; E11.9 Type 2 diabetes mellitus without complications; Z79.84 Long term (current) use of oral hypoglycemic drugs

== ENCOUNTER 2016-12-12 15:10 | Observation (INO) | payer BC ==
[~2016-12-12] VITALS: Ht 190.5 cm; Wt 175.7 kg
--- NOTE | ~2016-12-12 | CN ---
PATIENT NAME:CHARLEY LANE MEDICAL RECORD: [id number] : 69 LOCATION:D. D.2134 ADMIT DATE: 12/12/16 ACCOUNT: [id number] CONSULTING PHYSICIAN: GUCCI ARGUELLO MD REFERRING PHYSICIAN: CAROLINE VELA MD DATE OF CONSULTATION: 12/13/2016 Cardiology Consultation DIAGNOSES: 1. Chest pain. 2. Normal cardiac catheterization, July 2016. HISTORY OF PRESENT ILLNESS: This is a gentleman who presents with chest pain. He had a normal cardiac catheterization in July 2016. The chest pain is worse when he takes a deep inspiration. He has no ST-T changes on his EKG. His troponin is negative. PHYSICAL EXAMINATION: GENERAL APPEARANCE: Well-nourished, well-developed, appears stated age. Level of distress, comfortable. PSYCHIATRIC: Mental status, alert, normal affect. Orientation, oriented to time, place and person. EYES: Lids and conjunctiva, noninjected. No discharge, no pallor. ENT: Lips, teeth, gums, normal dentition. Oropharynx, no cyanosis, no pallor. NECK: Carotid arteries, bilateral normal upstroke, no bruits, no thrills. JUGULAR VEINS: No jugular venous pressure or distention. CERVICAL LYMPH NODES: Nontender, nonenlarged. THYROID: Not enlarged. Nontender. No nodules. LUNGS: Respiratory effort, unlabored. CHEST: Normal curvature. No thoracic deformity. No chest wall tenderness. Percussion, resonant. Auscultation, clear. No wheezes, no rales, no rhonchi. CARDIOVASCULAR: Precordial exam, nondisplaced. No heaves or pericardial thrills. Rate and rhythm, regular. Heart sounds, normal S1, normal S2. No S3, no gallop, no rub. Systolic murmur, not heard. Diastolic murmur, not heard. EXTREMITIES: No cyanosis, no edema. Peripheral pulses, full and equal in all extremities, except as noted. No bruits appreciated. ABDOMEN: Soft, nondistended. Normal aorta. No bruit. Nontender. No masses. Liver, nontender, no hepatomegaly. Spleen, nontender, no splenomegaly. MUSCULOSKELETAL: No joint tenderness. No joint swelling. No erythema. NEUROLOGICAL: Normal gait, normal strength, normal tone. SKIN: Warm and dry. REVIEW OF SYSTEMS: The patient reports easy bruising but reports no swollen glands. The patient reports no fever, no night sweats, no significant weight gain, no significant weight loss. No significant exercise tolerance. The patient reports no dry eyes, no irritation, no vision change. Patient reports no difficulty hearing and no ear pain. Patient reports no frequent nose bleeds or nose and sinus problems. Patient reports on arm pain on exertion. No shortness of breath while lying down. No history of heart murmur. Patient reports no cough, no wheezing or coughing up blood. Patient reports no abdominal pain, no vomiting. Normal appetite. No diarrhea and not vomiting blood. No nausea and no constipation. Patient reports no incontinence. No difficulty urinating. No hematuria. No increased frequency. Patient reports no muscle aches. No weakness, no arthralgias, no back pain. No swelling of the CONSULT REPORT [id number] DOMINGOCHARLEY KATELYN extremities. Patient reports no abnormal mole, no jaundice, no rashes. Reports no loss of consciousness. No weakness and no numbness. No seizures, dizziness, or headaches. The patient reports no depression, no sleep disturbance, feeling safe in a relationship and no alcohol abuse. Patient reports on fatigue. Reports no runny nose or sinus pressure. No itching, no hives, and no frequent sneezing. OVERALL IMPRESSION: His chest pain is noncardiac in etiology. No other cardiac workup or treatment is necessary. TRANSINT:[id number] Voice Confirmation ID: [id number] DOCUMENT ID: [id number] GUCCI ARGUELLO MD CC: [id number] DICTATION DATE: 12/13/161656 WATER/WASTEWATER PROJECT ENGINEER: 12/13/162110 [facility] [place] [address] [place] [address]
[~2016-12-12 15:10] MED LIST changes: +HYDROCODONE-APA1 TAB PO
[2016-12-12 16:02] LABS: BASOPHILS 0.3 % (0-2); EOSINOPHILS 1.4 % (0-7); HEMATOCRIT 42.3 % (42.0-54.0); HEMOGLOBIN 14.1 g/dL (13.5-17.5); IMMATURE GRANULOCYTES 0.4 % (0-5); LYMPHOCYTES 22.8 % (15-50); MCH 29.6 pg (26.0-34.0); MCHC 33.3 g/dL (31.0-37.0); MCV 88.7 fL (80.0-100.0); MEAN PLATELET VOLUME 9.9 fL (7.4-10.4); MONOCYTES 9.1 % (2-11); PLATELET COUNT 232 10x3/uL (130-400); RBC 4.77 10x6/uL (4.20-6.10); RDW 13.7 % (11.5-14.5); WBC 11.7 10x3/uL (4.8-10.8)
[2016-12-12 16:43] LABS: ALBUMIN 3.6 g/dL (3.4-5.0); ALKALINE PHOSPHATASE 61 U/L (46-116); ALT (SGPT) 41 U/L (10-68); BILIRUBIN - TOTAL 0.31 mg/dL (0.2-1.3); CALCIUM 8.7 mg/dL (8.5-10.1); CARBON DIOXIDE 25.7 mmol/L (21.0-32.0); CHLORIDE - SERUM 102 mmol/L (98-107); CKMB 0.4 U/L (0.0-3.6); GLUCOSE 146 mg/dL (74-106); HDL CHOLESTEROL 55 mg/dL (32-96); POTASSIUM - SERUM 3.9 mmol/L (3.5-5.1); PROTEIN - SERUM 7.3 g/dL (6.4-8.2); SODIUM 140 mmol/L (136-145); eGFR NON AFRICAN AMERICAN 84 mL/min (90-120)
[2016-12-12 17:07] LABS: CALC OSMOLALITY 283 mosm/kg (275-300); CHOL - HDL RATIO 3.9 ratio (2.3-4.9); CHOLESTEROL, TOTAL 215 mg/dL (0-200); CREATINE KINASE 66 UL (21-232); LDL CHOLESTEROL 115 mg/dL (0-100); LDL-HDL RATIO 2.1 ratio (1.5-3.5); TRIGLYCERIDE 229 mg/dL (30-200); UREA NITROGEN 18 mg/dL (7-18)
[2016-12-12 17:08] LABS: TROPONIN-I < 0.017 ng/mL (0.000-0.060)
[2016-12-12 17:33] LABS: PRO BNP 106 pg/mL (0-125)
[2016-12-12 19:00] VITALS: BP 150/85
--- NOTE | 2016-12-12 20:26 | NUR ---
REPORT RECEIVED FROM CARLOS MANUEL GONZALES IN ER. PT WILL BE GOING TO ROOM 9795. WILL UPDATE SOON PT ARRIVES
[2016-12-12 20:36] LABS: CKMB 0.3 U/L (0.0-3.6); CREATINE KINASE 89 UL (21-232)
[2016-12-12 20:46] LABS: TROPONIN-I < 0.017 ng/mL (0.000-0.060)
--- NOTE | 2016-12-12 21:20 | NUR ---
PT ARRIVED VIA WHEEL CHAIR WITH FAMILY AT SIDE. PT IS A&O X4. STATES HE IS HAVING CHEST PAIN STILL BUT NOT BAD EARLIER. STATES IT IS BAD WHEN HE BREATHES. 6/10 IN CENTER OF CHEST. WHEN INHALE FEELS LIKE A STABBING PAIN. WHEN RELAXED AND NOT INHALE FEELS LIKE PRESSURE. WILL CHECK FOR ORDERED PAIN MEDS AND GIVE. PT DENIES ANY NEEDS. NO S/S OF DISTRESS. BED LOW AND CALL LIGHT WITHIN REACH. WILL CPOC
[2016-12-13 01:39] LABS: CKMB 0.1 U/L (0.0-3.6); CREATINE KINASE 44 UL (21-232); TROPONIN-I < 0.017 ng/mL (0.000-0.060)
[2016-12-13 04:00] VITALS: BP 152/87
--- NOTE | 2016-12-13 07:07 | NUR ---
RECEIVED REPORT. ASSUMED CARE OF PATIENT. RESTING IN BED WITH EYES OPEN. DENIES NEEDS AT THIS TIME. CALL LIGHT WITHIN REACH. NO DISTRESS. AWAITING TO SEE IF ANOTHER CTA WILL BE DONE DUE TO THE CTA DONE IN ER, THE CONTRAST WAS NOT DISPLACED WELL.
[2016-12-13 08:14] LABS: CKMB 0.1 U/L (0.0-3.6); CREATINE KINASE 43 UL (21-232); TROPONIN-I < 0.017 ng/mL (0.000-0.060)
[2016-12-13 08:18] VITALS: BP 148/83
[2016-12-13 08:36] VITALS: Ht 190.5 cm; Wt 175.7 kg
[2016-12-13 12:07] LABS: CALC OSMOLALITY 278 mosm/kg (275-300); CALCIUM 8.4 mg/dL (8.5-10.1); CHLORIDE - SERUM 99 mmol/L (98-107); CREATININE - SERUM 0.9 mg/dL (0.6-1.3); GLUCOSE 160 mg/dL (74-106); POTASSIUM - SERUM 3.8 mmol/L (3.5-5.1); SODIUM 138 mmol/L (136-145); eGFR NON AFRICAN AMERICAN > 90 mL/min (90-120)
[2016-12-13 12:08] LABS: UREA NITROGEN 13 mg/dL (7-18)
[2016-12-13 12:23] VITALS: BP 146/92
[2016-12-13 16:37] LABS: CREATINE KINASE 42 UL (21-232)
[2016-12-13 16:45] LABS: TROPONIN-I < 0.017 ng/mL (0.000-0.060)
--- NOTE | 2016-12-13 16:47 | NUR ---
FSBS 143. NO INSULIN COVERAGE REQUIRED PER SLIDING SCALE.
[2016-12-13 17:06] VITALS: BP 144/87
[2016-12-13 20:00] VITALS: BP 163/95
[2016-12-13 21:26] LABS: CREATINE KINASE 41 UL (21-232)
[2016-12-13 21:28] LABS: TROPONIN-I < 0.017 ng/mL (0.000-0.060)
--- NOTE | 2016-12-13 23:04 | NUR ---
PT RESTING IN BED. USING HIS C-PAP FROM HOME AT . PT DENIES ANY NEEDS. HAPPY ABOUT GETTING IN SHOWER. PT IS CONCERNED THAT HIS HOME MEDS HAVE NOT BEEN RESTARTED. HE DOES NOT TAKE INSULIN AT HOME SO REFUSED 2 UNITS FOR FSBS OF 177. PT TAKES PO BLOODSUGAR MEDS. GLIPIZIDE AND METFORMIN. PT KNOWS WHY HIS IS NOT ON METFORMIN. BUT WONDERS ABOUT THE OTHERS. NO S/S OF DISTRESS. PT DENIES ANY OTHER NEEDS. WILL CPOC
[2016-12-14 04:25] LABS: BASOPHILS 0.3 % (0-2); HEMATOCRIT 40.1 % (42.0-54.0); HEMOGLOBIN 13.2 g/dL (13.5-17.5); IMMATURE GRANULOCYTES 0.5 % (0-5); LYMPHOCYTES 38.6 % (15-50); MCH 29.1 pg (26.0-34.0); MCHC 32.9 g/dL (31.0-37.0); MCV 88.3 fL (80.0-100.0); MEAN PLATELET VOLUME 10.1 fL (7.4-10.4); MONOCYTES 10.6 % (2-11); PLATELET COUNT 232 10x3/uL (130-400); RBC 4.54 10x6/uL (4.20-6.10); RDW 13.3 % (11.5-14.5)
[2016-12-14 04:33] LABS: WBC 7.4 10x3/uL (4.8-10.8)
[2016-12-14 04:58] LABS: CALC OSMOLALITY 277 mosm/kg (275-300); CALCIUM 8.4 mg/dL (8.5-10.1); CARBON DIOXIDE 31.7 mmol/L (21.0-32.0); CHLORIDE - SERUM 101 mmol/L (98-107); CREATINE KINASE 38 UL (21-232); GLUCOSE 136 mg/dL (74-106); POTASSIUM - SERUM 3.6 mmol/L (3.5-5.1); SODIUM 138 mmol/L (136-145); UREA NITROGEN 12 mg/dL (7-18); eGFR NON AFRICAN AMERICAN 84 mL/min (90-120)
[2016-12-14 05:00] LABS: TROPONIN-I < 0.017 ng/mL (0.000-0.060)
[2016-12-14 09:00] VITALS: BP 172/95
[2016-12-14] MEDS ORDERED: ASPIRIN81 MG PO (11:26)
[2016-12-14] MEDS ORDERED: PROTONIX40 MG PO (11:27)
--- NOTE | 2016-12-14 16:43 | NUR ---
ALERT AND ORIENTED X4. DISCHARGE INSTRUCTIONS GIVEN VERBALLY AND WRITTEN. DISCHARGE PAPERS SIGNED ON CHART. REFUSE WHEELCHAIR FOR ESCORT. AMBULATES TO RIDE ACCOMPANIED BY FAMILY. REMAINS FREE FROM INJURY.
== END 2016-12-14 16:45 | disposition home or self-care (01) ==
LOC: D.ER 15:10 → OBSVTIME 19:44 → D.M2 19:44
PROVIDERS: Family Medicine; ADMIT Family Medicine
DX: R07.89 Other chest pain (principal); I10 Essential (primary) hypertension; E11.65 Type 2 diabetes mellitus with hyperglycemia; G47.33 Obstructive sleep apnea (adult) (pediatric)

== ENCOUNTER 2017-03-13 23:05 | Emergency (ER) | payer BC ==
[2016-12-13 08:36] VITALS: BMI 43.8
[~2017-03-13 23:05] MED LIST changes: +ASPIRIN81 MG PO; +PROTONIX40 MG PO
[2017-03-14 00:37] LABS: HEMATOCRIT 46.6 % (42.0-54.0); HEMOGLOBIN 15.6 g/dL (13.5-17.5); LYMPHOCYTES 22.4 % (15-50); MCH 29.1 pg (26.0-34.0); MCHC 33.5 g/dL (31.0-37.0); MCV 86.9 fL (80.0-100.0); MEAN PLATELET VOLUME 9.8 fL (7.4-10.4); NEUTROPHILS 72.1 % (40-80); PLATELET COUNT 255 10x3/uL (130-400); RBC 5.36 10x6/uL (4.20-6.10); RDW 14.5 % (11.5-14.5); WBC 11.1 10x3/uL (4.8-10.8)
[2017-03-14 00:49] LABS: ALBUMIN 3.5 g/dL (3.4-5.0); ALKALINE PHOSPHATASE 65 U/L (46-116); ALT (SGPT) 24 U/L (10-68); CALC OSMOLALITY 285 mosm/kg (275-300); CALCIUM 8.6 mg/dL (8.5-10.1); CARBON DIOXIDE 20.8 mmol/L (21.0-32.0); CHLORIDE - SERUM 104 mmol/L (98-107); CREATININE - SERUM 0.7 mg/dL (0.6-1.3); GLUCOSE 150 mg/dL (74-106); POTASSIUM - SERUM 4.2 mmol/L (3.5-5.1); SODIUM 142 mmol/L (136-145); UREA NITROGEN 13 mg/dL (7-18); eGFR NON AFRICAN AMERICAN > 90 mL/min (90-120)
[2017-03-14 00:55] LABS: MAGNESIUM - SERUM 1.9 mg/dL (1.8-2.4)
[2017-03-14 01:10] LABS: KETONE - SERUM SMALL mg/dL (NEGATIVE)
[2017-03-14 01:33] LABS: UDS - AMPHET NEGATIVE QUAL (NEGATIVE); UDS - BARB NEGATIVE QUAL (NEGATIVE); UDS - BENZO NEGATIVE QUAL (NEGATIVE); UDS - COCAINE NEGATIVE QUAL (NEGATIVE); UDS - OPIATE NEGATIVE QUAL (NEGATIVE); UDS - PCP NEGATIVE QUAL (NEGATIVE); UDS - THC NEGATIVE QUAL (NEGATIVE)
== END 2017-03-14 07:38 | disposition home or self-care (01) ==
LOC: D.ER 23:05
PROVIDERS: Physician Assistant Medical
DX: F10.10 Alcohol abuse, uncomplicated (principal)